=== PATIENT | male | born 1950 | race Caucasian/White ===

== ENCOUNTER 2019-09-04 09:45 | Outpatient (CLI) | payer SELFPAY ==
--- NOTE | ~2019-09-04 | XR_ITS ---
XR knee RT 2V DATE: 09/04/2019 10:18 INDICATION: Bilateral anterior and medial knee pain for one year, right worse than left TECHNIQUE: AP and lateral views COMPARISON: None FINDINGS: There is prominent loss of joint space at the medial compartment. There is periarticular sp urring at all 3 compartments. No fracture, dislocation, periosteal reaction or bone destruction, radiopaque intra-articular loose b kate, chondrocalcinosis or knee joint effusion is evident. IMPRESSION: Tricompartment osteoarthritis, most prominent at the medial compartment Reviewed, dictated and finalized at location B. END SUPERVISOR IMPRESSION: Tricompartment osteoarthritis, most prominent at the medial compart ment
--- NOTE | ~2019-09-04 | XR_ITS ---
XR knee LT 2V DATE: 09/04/2019 10:19 INDICATION: Bilateral anterior and medial knee pain, right worse than left TECHNIQUE: AP and lateral views COMPARISON: None FINDINGS: Superior and inferior pole patellar enthesopathy at quadriceps and patellar tendon insertio ns, respectively. There is mild/moderate loss of joint space height at the medial compartment. There is mild periarticu lar spurring at the medial compartment and slight periarticular spurring at the lateral and patellofe moral compartments. No fracture, dislocation, joint effusion, radiopaque intra-articular loose body or chondrocalcinosis is evident. IMPRESSION: Tricompartment osteoarthritis, not as prominent as at the right knee Reviewed, dictated and finalized at location B. WEDGER IMPRESSION: Tricompartment osteoarthritis, not as prominent as at the right bayron garcia
[2019-09-04 10:02] LABS: Hematocrit 43.1 % (37.0-46.0); Hemoglobin 14.3 g/dL (12.4-15.3); Mean Corpuscular HGB Conc 33.2 g/dL (32.0-36.0); Mean Corpuscular Hemoglobin 29.6 pg (27.0-31.0); Mean Corpuscular Volume 89.2 fL (78.0-102.0); Mean Platelet Volume 9.3 fl (8.7-11.0); Platelet Count Result 200 K/mm3 (150-420); Red Blood Count 4.83 M/mm3 (4.70-6.10); Red Cell Distribution Width 13.6 % (11.6-14.4); White Blood Count 4.1 K/mm3 (4.8-10.8)
[2019-09-04 10:06] LABS: Add Urine Microscopic? NO; Appearance Urine Clear (Clear); Bilirubin Urine Negative (Negative); Blood Urine Negative (Negative); Color Urine Yellow (Yellow); Glucose Urine UA Negative (Negative); Ketones Urine Negative (Negative); Leukocyte Esterase Ur Negative (Negative); Nitrate Urine Negative (Negative); Protein Urine Negative (Negative); Specific Grav Ur 1.015 (1.010-1.020)
[2019-09-04 10:10] LABS: Hemoglobin A1C 6.6 % (<5.7)
[2019-09-04 10:15] LABS: Creatinine Urine 194.42 mg/dL (40-278); MALB Creatinine Ratio 6.2 mg/g (0-30); Microalbumin Urine Random 12.1 mg/L
[2019-09-04 10:45] LABS: Alanine Aminotransferase 21 U/L (16-63); Albumin Level 3.9 g/dL (3.4-5.0); Alkaline Phosphatase 84 U/L (46-116); Anion Gap 14.5 mmol/L (7-16); Aspartate Amino Transferase 18 U/L (15-37); Bilirubin,Total 0.4 mg/dL (0.00-1.00); Blood Urea Nitrogen 14 mg/dL (7-18); Calcium 8.6 mg/dL (8.5-10.1); Carbon Dioxide 27 mmol/L (21-32); Chloride 108 mmol/L (98-108); Cholesterol 138 mg/dL (0-200); Estimated Glomerular Filt Rate 53; Glucose 121 mg/dL (70-99); HDL Direct 46 mg/dL (40-60); LDL Cholesterol Calculated 75 mg/dL (<130); Osmolality Calculated 301 mOsm/kg (285-295); Potassium 4.5 mmol/L (3.5-5.1); Prostate Specific Antigen 0.9 ng/mL (< OR = 4.0); Sodium 145 mmol/L (136-145); Total Protein 6.8 g/dL (6.4-8.2); Triglycerides 87 mg/dL (0-150)
[2019-09-04 10:46] LABS: CRP < 0.2 mg/dL (0.0-0.9)
[2019-09-07 21:07] LABS: Homocysteine 17.2 umol/L (<11.4)
== END 2019-09-04 09:46 | disposition home or self-care (01) ==
PROVIDERS: PCP Internal Medicine; Visit Provider Internal Medicine
DX: E78.2 Mixed hyperlipidemia (principal); Z79.899 Other long term (current) drug therapy; Z12.5 Encounter for screening for malignant neoplasm of prostate; N18.1 Chronic kidney disease, stage 1; I12.9 Hypertensive chronic kidney disease with stage 1 through stage 4 chronic kidney disease, or unspecified chronic kidney disease
CPT/HCPCS: 36415; 73560; 80053; 80061; 81003; 82043; 83036; 83090; 84153; 84443; 85027; 86140; G0103

== ENCOUNTER 2019-10-09 00:19 | Day surgery (SDC) | payer MEDICARE, SELFPAY ==
[2019-10-08 13:42] VITALS: BMI 45.7
[2019-10-09 09:14] VITALS: BP 150/76; PULSE 73; RESP 14; TEMP 36.2; O2SAT 95
[2019-10-09] MEDS: LACTATED RINGERS 1,000 ML 150 ML IV CONT (09:35)
[2019-10-09 09:36] LABS: Glucose Point of Care 128 (65-105)
--- NOTE | 2019-10-09 09:54 | P.HP_ITS ---
History of Present Illness History of Present Illness Consent: Risks, benefits, and alternatives have been discussed and questions answered. Patient agrees to proceed with procedure. Chief complaint: Neoplasm Screening Narrative: Alban Fuentes is a 68 year old male referred for screening colonoscopy [facility] Past Medical History Medical History Abnormal finding of blood chemistry, unspecified Anxiety with depression Benign essential hypertension Body mass index (BMI) 45.0-49.9, adult CKD (chronic kidney disease) Colon cancer screening Diabetes A1C = 6.6 (09/04/2019) DJD (degenerative joint disease) of knee DM type 2 (diabetes mellitus, type 2) Elevated homocysteine Encounter for Medicare annual wellness exam Encounter for routine adult health examination without abnormal findings Encounter for special screening examination for neoplasm of prostate FHx: colon cancer Follow up Hearing loss Hyperlipidemia On custodial drug therapy LITA on CPAP Tricompartment osteoarthritis of both knees Family History Family History Mother Family history of malignant neoplasm Father Acute myocardial infarction Social History Social History Smoking status: Never smoker Alcohol intake: current Meds Home Medications and Allergies Home Medications Medication Instructions Recorded Confirmed Type diltiazem HCl 180 mg 360 mg PO DAILY #60 cap 09/25/19 10/08/19 Rx capsule,extended release 24 hr candesartan 32 mg tablet 32 mg PO DAILY #90 tablet 10/02/19 10/08/19 Rx folic acid 800 mcg tablet 0.8 mg PO DAILY 10/02/19 10/08/19 History icosapent ethyl 1 gram capsule 2 gm PO BID #360 cap 10/02/19 10/08/19 Rx mecobalamin (vitamin B12) 1,000 1,000 mcg SUBLINGUAL DAILY 10/02/19 10/08/19 History mcg disintegrating tablet,sublingual pioglitazone 30 mg tablet 30 mg PO DAILY #90 tablet 10/02/19 10/08/19 Rx rosuvastatin 20 mg tablet 20 mg PO DAILY #90 tablet 10/02/19 10/08/19 Rx venlafaxine 75 mg capsule,extended 75 mg PO DAILY #90 cap 10/02/19 10/08/19 Rx release 24 hr Allergies Allergy/AdvReac Type Severity Reaction Status Date / Time No Known Allergies Allergy Mild Unverified 10/08/19 13:57 Vital Signs Vital Signs - 24 hr 10/09/19 09:14 Temperature 36.2 C L Pulse Rate 73 Respiratory Rate 14 Blood Pressure 150/76 H Pulse Oximetry 95 Exam Resp: Auscultation: clear to auscultation bilaterally Cardio: Rate: regular rate Rhythm: regular rhythm GI: GI Palp: Yes Soft to palpation and No Tenderness to palpation present (GI) Assessment and Plan Assessment and plan (1) Colon cancer screening: Code(s): Z12.11 - Encounter for screening for malignant neoplasm of colon Status: Acute
--- NOTE | 2019-10-09 09:57 | WPDANESEPPF ---
Anes - Initial Pre Proc Eval Procedure: Operation Date: 10/09/19 10:00 Proposed Procedures p Screening Colonoscopy - Saji Solano MD Date/Time: 10/09/19 09:57 Surgeon: Saji Solano MD Pre Op Diagnosis: Neoplasm Screening Patient Data Age: 68 Gender: M Height: 5 ft 8 in Weight: 143.7 kg Last Vital Signs Temp 97.1 F L 10/09/19 09:14 Pulse 73 10/09/19 09:14 Resp 14 10/09/19 09:14 BP 150/76 H 10/09/19 09:14 Pulse Ox 95 10/09/19 09:14 Allergies Allergy/AdvReac Type Severity Reaction Status Date / Time No Known Allergies Allergy Mild Unverified 10/08/19 13:57 Home Medications Medication Instructions Recorded Confirmed Type diltiazem HCl 180 mg 360 mg PO DAILY #60 cap 09/25/19 10/08/19 Rx capsule,extended release 24 hr candesartan 32 mg tablet 32 mg PO DAILY #90 tablet 10/02/19 10/08/19 Rx folic acid 800 mcg tablet 0.8 mg PO DAILY 10/02/19 10/08/19 History icosapent ethyl 1 gram capsule 2 gm PO BID #360 cap 10/02/19 10/08/19 Rx mecobalamin (vitamin B12) 1,000 1,000 mcg SUBLINGUAL DAILY 10/02/19 10/08/19 History mcg disintegrating tablet,sublingual pioglitazone 30 mg tablet 30 mg PO DAILY #90 tablet 10/02/19 10/08/19 Rx rosuvastatin 20 mg tablet 20 mg PO DAILY #90 tablet 10/02/19 10/08/19 Rx venlafaxine 75 mg capsule,extended 75 mg PO DAILY #90 cap 10/02/19 10/08/19 Rx release 24 hr Laboratory Tests 10/09/19 09:28 POC Capillary Glucose 128 mg/dl H mg/dl (65-105) Patient hx anesthesia problems: none Family hx anesthesia problems: none PMFSH Past Medical History Medical History Abnormal finding of blood chemistry, unspecified Anxiety with depression Benign essential hypertension Body mass index (BMI) 45.0-49.9, adult CKD (chronic kidney disease) Colon cancer screening Diabetes A1C = 6.6 (09/04/2019) DJD (degenerative joint disease) of knee DM type 2 (diabetes mellitus, type 2) Elevated homocysteine Encounter for Medicare annual wellness exam Encounter for routine adult health examination without abnormal findings Encounter for special screening examination for neoplasm of prostate FHx: colon cancer Follow up Hearing loss Hyperlipidemia On group home drug therapy LITA on CPAP Tricompartment osteoarthritis of both knees Family History Family History Mother Family history of malignant neoplasm Father Acute myocardial infarction Social History Social History Smoking status: Never smoker Alcohol intake: current Anes - Eval Final PreProcedure Day of Procedure 10/09/19 09:57 Patient weight: morbidly obese Heart: regular rate and rhythm Lungs: clear to auscultation Airway: Mallampati scale class III Neurological: alert and oriented Last oral intake: >/= 8 hours ASA classification: IV Emergent: no Anesthetic plan: proceed Anesthesia type and monitoring: general GIVS and standard monitoring Informed Consent: The patient's anesthetic plan and its attendant risks and benefits were discussed with the patient/family/POA. Questions were solicited and answers provided to the satisfaction of the patient/family/POA.
[2019-10-09 10:27] VITALS: BP 98/43; PULSE 75; RESP 16; O2SAT 97
[2019-10-09 10:37] VITALS: BP 116/57; PULSE 70; RESP 16; O2SAT 96
[2019-10-09 10:47] VITALS: BP 134/66; PULSE 71; RESP 18; O2SAT 97
== END 2019-10-09 11:04 | disposition home or self-care (01) ==
PROVIDERS: PCP Internal Medicine; Visit Provider Internal Medicine Gastroenterology
PROC: 0DJD8ZZ Inspection of Lower Intestinal Tract, Via Natural or Artificial Opening Endoscopic (ICD-10-PCS; CPT 45378; principal; 2019-10-09 10:00)
DX: Z12.11 Encounter for screening for malignant neoplasm of colon (principal); D12.2 Benign neoplasm of ascending colon; D12.4 Benign neoplasm of descending colon; I12.9 Hypertensive chronic kidney disease with stage 1 through stage 4 chronic kidney disease, or unspecified chronic kidney disease; N18.9 Chronic kidney disease, unspecified; E11.22 Type 2 diabetes mellitus with diabetic chronic kidney disease; E78.5 Hyperlipidemia, unspecified; G47.33 Obstructive sleep apnea (adult) (pediatric); F41.8 Other specified anxiety disorders; E66.01 Morbid (severe) obesity due to excess calories; Z68.42 Body mass index [BMI] 45.0-49.9, adult; Z79.84 Long term (current) use of oral hypoglycemic drugs
CPT/HCPCS: 45385; 45381; 88305; J2001; J2704; J7120

== ENCOUNTER 2020-02-11 15:50 | Outpatient (CLI) | payer MEDICARE, SELFPAY ==
[2020-02-11 16:45] LABS: Hemoglobin A1C 6.7 % (<5.7)
[2020-02-11 17:00] LABS: LDL Cholesterol Direct 53 mg/dL
[2020-02-11 17:01] LABS: Blood Urea Nitrogen 17 mg/dL (9-20); Calcium 8.9 mg/dL (8.4-10.2); Carbon Dioxide 26 mmol/L (22-30); Chloride 106 mmol/L (98-107); Cholesterol 119 mg/dL (0-200); Estimated Glomerular Filt Rate 55; Glucose 120 mg/dL (75-110); HDL Direct 40 mg/dL; Potassium 4.4 mmol/L (3.4-5.0); Sodium 139 mmol/L (137-145); Triglycerides 147 mg/dL (<150)
== END 2020-02-11 15:51 | disposition home or self-care (01) ==
PROVIDERS: PCP Internal Medicine; Visit Provider Internal Medicine
DX: I12.9 Hypertensive chronic kidney disease with stage 1 through stage 4 chronic kidney disease, or unspecified chronic kidney disease (principal); Z79.899 Other long term (current) drug therapy; E11.22 Type 2 diabetes mellitus with diabetic chronic kidney disease; N18.1 Chronic kidney disease, stage 1; E78.2 Mixed hyperlipidemia
CPT/HCPCS: 36415; 80048; 80061; 82542; 83036; 84443

== ENCOUNTER → 2020-06-23 14:49 | Outpatient (CLI) | payer MEDICARE, SELFPAY ==
--- NOTE | ~2020-06-23 | US_ITS ---
US renal BI 06/23/2020 15:07 Procedure: Realtime transabdominal ultrasound of the kidneys and bladder. Indication: Abnormal renal function tests Comparison: Ultrasound dated 02/20/2018 Findings: Renal echotexture is normal bilaterally without hydronephrosis, contour deforming mass or r enal calculus. The right kidney measures 10.7 cm and left kidney measures 11.2 cm. Bladder within no rmal limits. Impression: 1: Unremarkable renal ultrasound. No stones, masses or hydronephrosis. Reviewed, dictated and finalized at location A. TH AND SAFETY COORDINATOR Impression: 1: Unremarkable renal ultrasound. No stones, masses or hydronephrosis.
== END ==
PROVIDERS: PCP Internal Medicine; Visit Provider Internal Medicine
DX: R79.89 Other specified abnormal findings of blood chemistry (principal)
CPT/HCPCS: 76775

== ENCOUNTER 2021-03-01 13:41 | Outpatient (CLI) | payer MEDICARE, SELFPAY ==
--- NOTE | ~2021-03-01 | US_ITS ---
EXAMINATION: US retroperitoneal comp DATE: 03/01/2021 14:04 INDICATION: Chronic kidney disease stage IIIB. TECHNIQUE: Multiple ultrasound grayscale images of the kidneys were obtained. COMPARISON: Ultrasound 06/23/2020 FINDINGS: The right kidney measures 11.1 x 6.9 x 5.6 cm. The left kidney measures 12.3 x 4.7 x 5.7 cm. The kidn eys demonstrate normal parenchymal echogenicity. There is no hydronephrosis. The bladder is normal. IMPRESSION: 1. Normal kidneys. No hydronephrosis. Reviewed, dictated and finalized at location A.
== END 2021-03-01 13:42 | disposition home or self-care (01) ==
LOC: CHSIMG 13:44
PROVIDERS: PCP Internal Medicine; Visit Provider Internal Medicine Nephrology
DX: N18.32 Chronic kidney disease, stage 3b (principal)
CPT/HCPCS: 76770

== ENCOUNTER 2024-11-26 16:58 | Outpatient (RCR) | payer MEDICARE, SELFPAY ==
--- NOTE | 2024-11-26 17:51 | PTOPEVAL1 ---
Assessment and note entered by Laurita Velazquez DPT Evaluation Information Assessment Status Evaluation Diagnosis R knee pain ICD-10 Condition Codes (PT) Encounter for other orthopedic aftercare Z47.89 Onset 09/30/24 Subjective Information Patient reports he underwent R TKA on 09/30/24. He reports he had home health for about 1 month. He reports he has been told his knee is doing well but he has difficulty with putting on his socks, pulling his foot back and getting his leg into the car. He reports the R foot has been bothering him . He repots he has gotten new shoes recently. He reports sleep has been difficult. Reported Pain Level Pain Score 0: Self Report Assessment PT Clinical Summary Mr. Fuentes is a 74 year old male who presents to PT with R knee pain s/p R TKA. He demonstrates decreased R knee active ROM and impaired gait limiting his ability to don socks and shoes, get into and out of the car and sleep. He would benefit from skilled PT to address impairments and return to PLOF. Plan of Care Interventions Electrical Stimulation,Gait Training,Hot Pack/Cold Pack,Intermittent Compression Pump,Manual Therapy ,Neuro Re-education,Patient/Caregiver Education, Therapeutic Activities,Therapeutic Exercise PT Services Indicated Yes Treatment Frequency and 2x weekly for 10 visits Duration These treatments will address the objective and functional deficits as defined above. The patient will be advanced safely and appropriately in order for the patient to progress towards his/her prior level of function. Additional exercises will be introduced and as well as a comprehensive home exercise program upon discharge, if needed, ?to ensure carryover of functional gains achieved in the clinic. This treatment plan has been reviewed and agreement upon by the patient.
--- NOTE | 2024-12-26 17:54 | OPREHPOC ---
Outpatient Therapy Plan of Care This is a Multidisciplinary Plan of Care that may contain components documented by all disciplines (PT, OT, and ST.) PT Problem 1 PT Problem #1 Knowledge Deficit PT Goal 1 Goal / Goal Update patient to demonstrate independence with HEP Target Visit 5 Progress Met PT Problem 2 PT Problem #2 Pain PT Goal 1 Goal / Goal Update 1. patient to report highest pain at 2/10 2. patient to report ability to sleep with no disturbance due to R knee pain Target Visit 10 Progress Not Met PT Goal 2 Goal / Goal Update continue Target Visit 18 PT Problem 3 PT Problem #3 Impaired Range of Motion PT Goal 1 Goal / Goal Update patient to demonstrate 0-120 deg of R knee ROM to return to stair navigation nd getting into car at PLOF Target Visit 10 Progress Not Met PT Goal 2 Goal / Goal Update continue Target Visit 18 PT Problem 4 PT Problem #4 Impaired Functional Mobility PT Goal 1 Goal / Goal Update 1. Patient to improve LEFS by 20% -not met 2. Patient to report no difficulty with getting into in out of car -not met 3. Patient to report don socks and shoes with no knee pain -not met Target Visit 10 Progress Not Met PT Goal 2 Goal / Goal Update continue Target Visit 18
--- NOTE | 2024-12-26 17:54 | PTOPPROG ---
Assessment and note entered by Dinorah Wood, PT Evaluation Information Assessment Status Progress Diagnosis R knee pain ICD-10 Condition Codes (PT) Encounter for other orthopedic aftercare Z47.89 Onset 09/30/24 Subjective Information Alban Fuentes reports his right knee is getting a little better but he still has tightness and difficulty bending his knee. This leads to difficulty crossing his leg over the other to don socks and shoes, sit in a car, navigate stairs, and get in the shower. He also still has intermittent pain noting more pain after stretching a lot. He would like to continue PT to further improve his functional abilities. Assessment PT Clinical Summary Alban Fuentes has completed 10 skilled PT visits following a right knee arthroplasty performed on . He did not start outpatient PT until and ROM has been slowly progressing since he started PT. He is demonstrating a slight regression in ROM today but is reporting increased stiffness. He continues to have difficulty donning socks and shoes, sitting in vehicles, navigating stairs, and getting into a shower. He will continue to benefit from skilled PT to further address ROM necessary for daily functions. Plan of Care Interventions Hot Pack/Cold Pack,Intermittent Compression Pump, Manual Therapy,Patient/Caregiver Education, Therapeutic Exercise PT Services Indicated Yes Treatment Frequency and Continue 2 times a week for 8 visits Duration These treatments will address the objective and functional deficits as defined above. The patient will be advanced safely and appropriately in order for the patient to progress towards his/her prior level of function. Additional exercises will be introduced and as well as a comprehensive home exercise program upon discharge, if needed, ?to ensure carryover of functional gains achieved in the clinic. This treatment plan has been reviewed and agreement upon by the patient.
--- NOTE | 2025-01-30 17:41 | OPREHPOC ---
Outpatient Therapy Plan of Care This is a Multidisciplinary Plan of Care that may contain components documented by all disciplines (PT, OT, and ST.) PT Problem 1 PT Problem #1 Knowledge Deficit PT Goal 1 Goal / Goal Update patient to demonstrate independence with HEP Target Visit 5 Progress Met PT Problem 2 PT Problem #2 Pain PT Goal 1 Goal / Goal Update 1. patient to report highest pain at 2/10 2. patient to report ability to sleep with no disturbance due to R knee pain Target Visit 10 Progress Met PT Goal 2 Goal / Goal Update . Target Visit 18 Progress Met PT Problem 3 PT Problem #3 Impaired Range of Motion PT Goal 1 Goal / Goal Update patient to demonstrate 0-120 deg of R knee ROM to return to stair navigation nd getting into car at PLOF Target Visit 10 Progress Not Met PT Goal 2 Goal / Goal Update . Target Visit 18 Progress Not Met PT Problem 4 PT Problem #4 Impaired Functional Mobility PT Goal 1 Goal / Goal Update 1. Patient to improve LEFS by 20% -not met 2. Patient to report no difficulty with getting into in out of car -partially met 3. Patient to report don socks and shoes with no knee pain -partially met Target Visit 10 Progress Not Met PT Goal 2 Goal / Goal Update . Target Visit 18
--- NOTE | 2025-01-30 17:41 | PTOPDC ---
Assessment and note entered by JT File, PT Evaluation Information Assessment Status Discharge Diagnosis R knee pain ICD-10 Condition Codes (PT) Encounter for other orthopedic aftercare Z47.89 Onset 09/30/24 Subjective Information patient reports he feels Good today. he reports he has no pain. he reports he is ready to DC therapy today. he reports he has been cleared from follow up visits with the surgeon until his 1 year post op junito. he reports his car is low to the ground and he has a little difficulty getting the R LE bent enough to get in the door. however, in his truck it is no issue getting in and out. he reports difficulty getting socks on, but he can take them off himself. Reported Pain Level Pain Score 0: Self Report Assessment PT Clinical Summary mr. escobar presents to skilled PT for his 18th skilled PT visit today s/p R TKA. he presents with decreased pain, but still limited rom of the R knee. we have been working hard on improving his active and passive rom, but he continues to be limited from normal/goal levels in both directions . given his lack of significant improvement in these areas, patient will DC to an independent HEP at this time, and continue to work on his objective/functional goals at home. Plan of Care PT Services Indicated Yes
== END 2025-02-24 23:59 | disposition home or self-care (01) ==
LOC: CHSPT 16:58
DX: Z47.1 Aftercare following joint replacement surgery (principal); Z96.651 Presence of right artificial knee joint
CPT/HCPCS: 97016; 97110; 97140; 97161